=== PATIENT | male | born 1960 | race Caucasian/White ===

== ENCOUNTER 2019-12-25 08:15 | Outpatient (CLI) | payer MEDICARE, SELFPAY ==
--- NOTE | 2019-12-25 | US_ITS ---
WS: [id number] RIGHT UPPER QUADRANT ULTRASOUND HISTORY: ELEVATED LIVER FUNCTIONS COMPARISON: None available. Liver: 15.9 cm in length. Very limited evaluation of the liver. Only a small portion of the liver is visualized. There does appear to be significant hepatic steatosis. Liver appears enlarged although th e measurements are normal. Gallbladder: Status post prior cholecystectomy. CBD: 0.3 cm Pancreas: Poorly visualized. Right kidney: 10.1 cm in length. Normal echogenicity with no mass or hydronephrosis. Aorta and IVC: Unremarkable. No ascites. US/US abdomen limited 85100 IMPRESSION: 1. Limited evaluation of the RIGHT upper quadrant. 2. Poorly visualized liver. At least moderate hepatic steatosis. The entire li donell has not been imaged. 3. Prior cholecystectomy.
== END 2019-12-25 08:16 | disposition home or self-care (01) ==
LOC: RADOUTREAD 11:06
PROVIDERS: Visit Provider Physician Assistant
DX: Z01.89 Encounter for other specified special examinations (principal)

== ENCOUNTER 2020-02-02 08:36 | Outpatient (CLI) | payer MEDICARE, SELFPAY ==
--- NOTE | 2020-02-02 10:15 | MM_ITS ---
WS: [id number] BILATERAL DIGITAL DIAGNOSTIC MAMMOGRAM MAMMOGRAPHY WITH CAD CLINICAL INFORMATION: RT BREAST LUMP HISTORY: Bilateral breast lumps COMPARISON: None. TECHNIQUE: Bilateral CC, MLO, and ML views. FINDINGS: Scattered fibroglandular densities bilaterally. Palpable marker overlying the right areola. No mammographic abnormalities. Additional palpable marker left area left. No definite mammographic abnormalities in this area. Ultrasound is pending. ULTRASOUND BREAST RIGHT TECHNIQUE: Ultrasound right breast focused area of concern. CLINICAL INFORMATION: Right BREAST LUMP COMPARISON: None. FINDINGS: Ultrasound right breast at the 3:00, 6:00, 9:00, and 12:00 periareolar positions. No evidence of cyst ic or solid mass. Normal subareolar breast tissue. Comparison left breast is unremarkable. No lesions to target for biopsy. MM/[place] [id number] IMPRESSION: BI-RADS: 2-Benign FOLLOW UP: See Report Additional management of the palpable abnormality should be based on clinical g rounds.
== END 2020-02-02 08:37 | disposition home or self-care (01) ==
LOC: RADSHAW 08:37
PROVIDERS: PCP Physician Assistant; Visit Provider Physician Assistant
DX: N63.10 Unspecified lump in the right breast, unspecified quadrant (principal); N63.20 Unspecified lump in the left breast, unspecified quadrant
CPT/HCPCS: 76642; 77066

== ENCOUNTER 2020-12-23 10:26 | Emergency (ER) | payer MEDICARE, SELFPAY ==
[2020-12-23 10:40] VITALS: BP 158/87; PULSE 127; RESP 16; TEMP 36.5; O2SAT 98; BMI 31.5
--- NOTE | 2020-12-23 10:53 | W.ED.CHESTPA ---
HPI - Chest Pain General: Chief Complaint: Chest Pain Stated Complaint: palpitations, CP Time Seen by Provider: 12/23/20 10:40 History of Present Illness: HPI narrative: 80-year-old male comes in complaining of rapid heart rate intermittently. He has had this in the past. He is not had any shortness of breath associated with this. He has chronic neck pain for which he sees the methadone clinic for him. Some of the pain does radiate up into the left side of his neck and shoulder. He is not had a cough no fever sweats or chills. He has no known history of coronary artery disease. MD complaint: chest pain Onset (ago): hour(s) Timing of current episode: episodic Prior episodes: Yes Onset: during rest and during exertion Pain location: left chest Pain radiation: neck and left shoulder Severity: mild Quality: aching Relieving factors: nothing Exacerbating factors: nothing Associated symptoms: Deny abdominal pain, diaphoresis, dyspnea, fever(s), leg edema, nausea, palpitations, sense of impending doom, syncope or vomiting Treatment prior to arrival: none Review of Systems Const: Denies: fever(s) or diaphoresis ENMT: Denies: throat pain, ear or mastoid pain, nasal discharge or nasal congestion Card: Denies: palpitations or syncope Resp: Denies: dyspnea GI: Denies: abdominal pain, nausea or vomiting : Denies: flank pain, dysuria, urinary frequency or urinary urgency Skin/Breast: Denies: rash or pruritus PFSH ED PFSH: Social History Smoking and tobacco status: former smoker Alcohol intake: former Substance/Drug Use: never Physical Exam Const: COMMON NORMALS: no acute distress GENERAL APPEARANCE: cooperative and comfortable ORIENTATION/CONSCIOUSNESS: Yes awake, Yes oriented to person, Yes oriented to place and Yes oriented to time HENMT: COMMON NORMALS: normocephalic, atraumatic and hearing grossly normal bilaterally HEAD & SCALP: normocephalic and atraumatic Neck/C-Spine: COMMON NORMALS: no JVD Resp: COMMON NORMALS: normal respiratory effort, No retractions, No use of accessory muscles and clear to auscultation bilaterally AUSCULTATION: clear to auscultation bilaterally Cardio: COMMON NORMALS: no JVD, regular rate, regular rhythm and No murmurs present (Cardio) RATE: regular rate RHYTHM: regular rhythm GI: COMMON NORMALS: Soft to palpation and No hepatosplenomegaly present AUSCULTATION: Yes normoactive bowel sounds PALPATION: Yes Soft to palpation, No Tenderness to palpation present (GI), No Guarding due to palpation present (GI) and Yes No hepatosplenomegaly present Extremity: COMMON NORMALS: normal to inspection, capillary refill normal, no clubbing, cyanosis or edema, no calf tenderness and no pedal edema Neuro: SENSORIUM/ORIENTATION: Yes oriented to person, Yes oriented to place and Yes oriented to time Skin: COMMON NORMALS: no rashes or lesions noted GENERAL SKIN EXAM: no rashes or lesions noted Course Vital Signs: Vital signs: Vital Signs Temperature 97.7 F 12/23/20 10:40 Pulse Rate 70 12/23/20 14:21 Respiratory Rate 16 12/23/20 14:21 Blood Pressure 114/78 12/23/20 14:21 Pulse Oximetry 96 12/23/20 14:21 MDM - Chest Pain MDM Narrative: Medical decision making narrative: We will decrease his lisinopril and add Toprol. Follow-up with primary care doctor next week return if has further problems. At this point he is feeling much better reviewed the findings with him. Lab Data: Labs: Lab Results 12/23/20 12/23/20 12/23/20 Range/Units 11:00 11:00 11:00 WBC 5.5 (4.0-10.0) 10^3/ uL RBC 4.87 (4.1-5.3) 10^6/u L Hgb 13.1 (11.7-16.6) g/dL Hct 39.9 L (42.0-52.0) % MCV 81.9 (80-94) fL MCH 26.9 L (28.0-34.0) pg MCHC 32.8 (30.0-36.0) g/dL RDW 14.0 (12.1-15.1) % Plt Count 258 (130-400) 10^3/c mm MPV 10.1 (7.4-10.4) fL Neut % (Auto) 66.4 % Lymph % (Auto) 21.8 % [place] % (Auto) 9.8 % Eos % (Auto) 1.1 % Baso % (Auto) 0.7 % Neut # (Auto) 3.65 (1.8-7.7) 10^3/u L Lymph # (Auto) 1.2 (0.8-4.8) 10^3/u L [place] # (Auto) 0.5 (0.2-0.9) 10^3/u L Eos # (Auto) 0.1 (0.0-0.8) 10^3/u L Baso # (Auto) 0.0 (0.0-0.1) 10^3/u L Nucleated RBC % (a uto) 0 % Nucleated RBCs # 0.0 /100WBC Sodium Cancelled Potassium Cancelled Chloride Cancelled Carbon Dioxide Cancelled Anion Gap Cancelled BUN Cancelled Creatinine Cancelled GFR Calculation Cancelled Glucose Cancelled Calculated Osmolal ity Cancelled Calcium Cancelled Total Bilirubin Cancelled AST Cancelled ALT Cancelled Alkaline Phosphata se Cancelled Troponin T Baselin e Cancelled Troponin T 120 Min [place] (0-15) ng/L Delta Troponin T (0-10) ABS# Total Protein Cancelled Albumin Cancelled Globulin Cancelled TSH Cancelled Free T4 Cancelled 12/23/20 12/23/20 12/23/20 Range/Units 11:32 11:32 13:22 WBC (4.0-10.0) 10^3/ uL RBC (4.1-5.3) 10^6/u L Hgb (11.7-16.6) g/dL Hct (42.0-52.0) % MCV (80-94) fL MCH (28.0-34.0) pg MCHC (30.0-36.0) g/dL RDW (12.1-15.1) % Plt Count (130-400) 10^3/c mm MPV (7.4-10.4) fL Neut % (Auto) % Lymph % (Auto) % [place] % (Auto) % Eos % (Auto) % Baso % (Auto) % Neut # (Auto) (1.8-7.7) 10^3/u L Lymph # (Auto) (0.8-4.8) 10^3/u L [place] # (Auto) (0.2-0.9) 10^3/u L Eos # (Auto) (0.0-0.8) 10^3/u L Baso # (Auto) (0.0-0.1) 10^3/u L Nucleated RBC % (a uto) % Nucleated RBCs # /100WBC Sodium 136 Potassium 4.2 Chloride 100 Carbon Dioxide 30 H Anion Gap 10.2 BUN 10 Creatinine 0.7 GFR Calculation 114.6 Glucose 117 H Calculated Osmolal ity 282 L Calcium 8.7 Total Bilirubin 0.4 AST 226 H ALT 178 H Alkaline Phosphata se 231 H Troponin T Baselin e 11 Troponin T 120 Min [place] 11.37 (0-15) ng/L Delta Troponin T 0.37 (0-10) ABS# Total Protein 6.9 Albumin 3.9 Globulin 3.0 TSH 1.13 Free T4 1.37 Discharge Plan Discharge Patient Disposition: Home Clinical Impression: Benign essential HTN, Heart palpitations Condition: Stable Prescriptions: New Toprol XL 25 mg tablet extended release 24 hr 25 mg PO DAILY Qty: 30 RF: 0 Changed lisinopril 10 mg Tablet 10 mg PO DAILY Qty: 0 RF: 0 No Action aspirin 325 mg Tablet 325 mg PO PRN RF: 0 ibuprofen 800 mg tablet 800 mg PO BID PRN (Reason: Pain) RF: 0 methadone 10 mg Tablet 60 mg PO QAM RF: 0 Combivent Respimat 20-100 mcg/actuation mist 2 puff INHALATION QID PRN (Reason: Shortness Of Breath) RF: 0 Discharge Orders: Discharge ED (Routine); Ordered 12/23/20 Ordered By: Ezequiel Trinidad Referrals: Nallely Good PA [Primary Care Provider] - Discharge Diet: Usual diet Discharge Activity: Resume usual activity Patient Instructions: Opioid Safety Activity Restrictions/Additional Instructions: This management will call to get you set up for 24-hour Holter monitor. Follow-up with your PCP for reevaluation of blood pressure within the next week. Coding Level of Care Code ED Director Of Materials for [place] Fwd Exam Comprehensive
[2020-12-23 11:08] LABS: Basophils % 0.7 %; Eosinophils # 0.1 10^3/uL (0.0-0.8); Eosinophils % 1.1 %; Hematocrit 39.9 % (42.0-52.0); Hemoglobin 13.1 g/dL (11.7-16.6); Lymphocytes # 1.2 10^3/uL (0.8-4.8); Lymphocytes % 21.8 %; Mean Corpuscular HGB Conc 32.8 g/dL (30.0-36.0); Mean Corpuscular Hemoglobin 26.9 pg (28.0-34.0); Mean Corpuscular Volume 81.9 fL (80-94); Mean Platelet Volume 10.1 fL (7.4-10.4); Monocytes # 0.5 10^3/uL (0.2-0.9); Monocytes % 9.8 %; Neutrophils # 3.65 10^3/uL (1.8-7.7); Neutrophils % 66.4 %; Nucleated Red Blood Cells % 0 %; Platelet Count 258 10^3/cmm (130-400); Red Blood Count 4.87 10^6/uL (4.1-5.3); White Blood Count 5.5 10^3/uL (4.0-10.0)
--- NOTE | 2020-12-23 11:11 | PC.PHAR ---
pt states he started taking his lisinopril from 2016 again 3 days ago-pt states he has been taking 20mg daily-[facility] am-pt states he takes aspirin prn-
[2020-12-23 11:20] VITALS: BP 140/85; PULSE 98; RESP 14; O2SAT 98
[2020-12-23 12:03] LABS: Troponin(5th) Baseline 11 ng/L (0-15)
[2020-12-23 12:11] LABS: Alanine Aminotransferase 178 U/L (0-41); Albumin Level 3.9 g/dL (3.5-5.2); Alkaline Phosphatase 231 IU/L (40-130); Anion Gap 10.2 (5-19); Aspartate Amino Transferase 226 U/L (0-40); Blood Urea Nitrogen 10 mg/dL (8-23); Calcium 8.7 mg/dL (8.5-10.5); Carbon Dioxide 30 mmol/L (22-29); Chloride 100 mmol/L (98-107); Creatinine Clr Calc Pharmacy 131.2215; Glomerular Filtration Rate 114.6 mL/min (90-130); Glucose 117 mg/dL (65-115); Osmolality Calculated 282 mOsm/kg (285-295); Potassium 4.2 mmol/L (3.5-5.1); Sodium 136 mmol/L (136-145); Thyroid Stimulating Hormone 1.13 uIU/mL (0.27-4.20); Total Bilirubin 0.4 mg/dL (0.15-1.2); Total Protein 6.9 g/dL (6.6-8.7)
--- NOTE | 2020-12-23 12:48 | ECG_ITS ---
[facility] Test Date: 2020-12-23 Pat Name: Pedro Whitmore Department: Room: Gender: Male Oak Tanner: : 1960 Requested By: Ezequiel Brown Order Number: [id number] Eusebio MD: Shar Mariee M.D. Measurements Intervals [place] Rate: 75 P: 61 ND: 191 QRS: -14 QRSD: 139 T: 26 QT: 402 QTc: 451 Interpretive Statements SINUS RHYTHM RIGHT BUNDLE BRANCH BLOCK [120+ ms QRS DURATION, UPRIGHT V1, 40+ ms S IN I/aVL/V4/V5/V6] Compared to ECG 12/23/2020 10:50:38 No significant changes Electronically Signed On 12-23-2020 16:14:45 SECURITY OFFICER SUPERVISOR by Shar Mariee M.D. [email or web address].[employer]/store/[id number]
[2020-12-23 13:00] LABS: Free T4 Free Thyroxine 1.37 ng/dL (0.82-1.77)
--- NOTE | 2020-12-23 13:13 | PC.NURSE ---
EKG done at 1310 and shown to ER doctor
[2020-12-23 13:24] VITALS: BP 121/83; PULSE 74; RESP 17; O2SAT 95
[2020-12-23 13:49] LABS: Troponin 5 2HR 11.37 ng/L (0-15); Troponin 5 2HR Delta 0.37 ABS# (0-10)
[2020-12-23 14:21] VITALS: BP 114/78; PULSE 70; RESP 16; O2SAT 96
--- NOTE | 2020-12-23 16:48 | ECG_ITS ---
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 Measurements Intervals [place] Rate: 99 P: 50 MD: 137 QRS: -26 QRSD: 147 T: 31 QT: 376 QTc: 483 Interpretive Statements SINUS RHYTHM BORDERLINE LEFT AXIS DEVIATION [QRS AXIS < -20] RIGHT BUNDLE BRANCH BLOCK [120+ ms QRS DURATION, UPRIGHT V1, 40+ ms S IN I/aVL/V4/V5/V6] No previous ECG available for comparison Electronically Signed On 12-23-2020 16:14:09 SLITTING AND SHIPPING SUPERVISOR by Shar Mariee M.D. [email or web address].[employer]/store/Om/[id number]
== END 2020-12-23 14:23 | disposition home or self-care (01) ==
PROVIDERS: Emergency Provider Family Medicine; PCP Physician Assistant
DX: R00.2 Palpitations (principal); I10 Essential (primary) hypertension; Z79.82 Long term (current) use of aspirin; Z87.891 Personal history of nicotine dependence
CPT/HCPCS: 36415; 80053; 84439; 84443; 84484; 85025; 93005; 99283

== ENCOUNTER 2021-04-14 11:44 | Emergency (ER) | payer MEDICARE, SELFPAY ==
[2021-04-14 12:01] VITALS: BP 106/70; PULSE 88; RESP 18; TEMP 37.2; O2SAT 96; BMI 30.1
--- NOTE | 2021-04-14 12:33 | W.ED.LOWEXIN ---
HPI - Extremity Injury (Lower) General: Chief Complaint: Extremity Injury, Lower Stated Complaint: LLE Injury Time Seen by Provider: 04/14/21 12:33 Source: patient Mode of arrival: ambulatory Limitations: no limitations History of Present Illness: HPI Narrative: Patient is a 60-year-old male who presents to ED today with a complaint of a left foot injury. Patient tells me he rolled the foot while walking yesterday. Patient tells me he has not been able to bear weight on the extremity since the event. He has no other complaints at this time. complaint: foot injury Onset (ago): day(s) (yesterday) Type of Injury: inversion Place: home Severity: severe Relieving factors: immobilization Exacerbating factors: weight bearing, movement and palpation Context: other (twisting) Associated symptoms: Reports inability to bear weight Other symptoms: none Review of Systems Musc: Reports: extremity pain (L foot) and extremity swelling (L foot); Denies: joint pain or joint swelling Neuro: Reports: difficulty walking (secondary to pain); Denies: numbness in extremities or sensory changes [facility], [facility] ED PFSH: Social History Smoking and tobacco status: former smoker Alcohol intake: former Physical Exam Const: COMMON NORMALS: no acute distress, average body habitus, patient oriented x3, no limitations, alert and well nourished GENERAL APPEARANCE: cooperative Extremity: GENERAL: Yes normal exam except as noted LEFT LOWER EXTREMITY: Yes foot & digits OTHER: TTP lateral left foot; mild swelling and bruising noted; NV intact; no tenderness to ankle mortise Neuro: COMMON NORMALS: patient oriented x3, moves all extremities, no focal motor deficits and no sensory deficits noted SENSORIUM/ORIENTATION: Yes alert GAIT: Yes Unable to assess gait Skin: NARRATIVE SKIN EXAM: mild ecchymosis to L dorsal foot; otherwise normal skin exam Course Vital Signs: Vital signs: Vital Signs Temperature 98.9 F 04/14/21 12:01 Pulse Rate 88 04/14/21 12:01 Respiratory Rate 18 04/14/21 12:01 Blood Pressure 106/70 04/14/21 12:01 Pulse Oximetry 96 04/14/21 12:01 MDM - Extremity Injury (Lower) MDM Narrative: Medical decision making narrative: Will place in hard soled surgical shoe, crutches, and have him followup with orthopedics/podiatry. Imaging Data^: XR L foot: Radiologist's impression: [address] [address] XRay Report Signed Patient: Pedro Whitmore Unit #: [id number] : 1960 Age/Sex: 60 / M ADM Date: 04/14/21 Loc: ER Room/Bed: Attending Dr: Ordering Provider/Ordering MD: Kary Elizabeth Date of Service: 04/14/21 Procedure(s): XR foot LT min 3V* 64190 Accession Number(s): [id number] Report Number: [id number] WS: [id number] Left foot, 3 views, 04/14/2021 Clinical Data: injury Comparison: None. Findings: There is a fracture of the base of the left fifth metatarsal. No other fractures are seen. The joint spaces are normal. The soft tissues are unremarkable. XR/XR foot LT min 3V* [id number] Impression: Fracture of the base of the left fifth metatarsal. Dictated By: Mirtha Isaac MD Signed By: Mirtha Isaac MD Signed Date/Time: 04/14/211254 DD/ 1254 Discharge Plan Discharge Patient Disposition: Home Clinical Impression: Closed nondisplaced fracture of fifth left metatarsal bone Qualifiers: Encounter type: initial encounter Qualified Code(s): S92.355A - Nondisplaced fracture of fifth metatarsal bone, left foot, initial encounter for closed fracture Condition: Stable Prescriptions: No Action aspirin 325 mg Tablet 325 mg PO PRN RF: 0 ibuprofen 800 mg tablet 800 mg PO BID PRN (Reason: Pain) RF: 0 methadone 10 mg Tablet 60 mg PO QAM RF: 0 Combivent Respimat 20-100 mcg/actuation mist 2 puff INHALATION QID PRN (Reason: Shortness Of Breath) RF: 0 Toprol XL 25 mg tablet extended release 24 hr 25 mg PO DAILY Qty: 30 RF: 0 lisinopril 10 mg Tablet 10 mg PO DAILY Qty: 0 RF: 0 Discharge Orders: Discharge ED (Routine); Ordered 04/14/21 Ordered By: Kary Elizabeth Referrals: Nallely Good PA [Primary Care Provider] - Patient Instructions: Fractures - Metatarsal Activity Restrictions/Additional Instructions: As we discussed case management should contact you shortly to set you up with your orthopedic follow-up appointment. You need to wear your surgical shoe or hard soled shoe at all times. Continue to use crutches until told otherwise by orthopedics. Coding Level of Care Code ED Room Service Attendant for Chg Fwd Exam Expanded Problem Focused
--- NOTE | 2021-04-14 12:37 | XR_ITS ---
WS: [id number] Left foot, 3 views, 04/14/2021 Clinical Data: injury Comparison: None. Findings: There is a fracture of the base of the left fifth metatarsal. No other fractures are seen. The joint spaces are normal. The soft tissues are unremarkable. XR/XR foot LT min 3V* [id number] Impression: Fracture of the base of the left fifth metatarsal.
--- NOTE | 2021-04-14 14:51 | DCPLANNER ---
client care manager had message to schedule a follow up appointment for patient with ortho for L %th metatarsal fracture. client care manager called the ortho clinic, spoke with Tali, gave clinic patients information. client care manager was told that patients information will be printed and reviewed. Clinic will call patient with appointment information.
--- NOTE | 2021-04-20 11:01 | DCPLANNER ---
bankruptcy manager spoke with Ani at [facility] concerning a follow up appointment. bankruptcy manager was told that clinic, has left a message with patients daughter to call clinic to schedule a follow up appointment for patient.
== END 2021-04-14 13:38 | disposition home or self-care (01) ==
PROVIDERS: Emergency Provider Physician Assistant; PCP Physician Assistant
DX: S92.335A Nondisplaced fracture of third metatarsal bone, left foot, initial encounter for closed fracture (principal); Z87.891 Personal history of nicotine dependence; X50.1XXA Overexertion from prolonged static or awkward postures, initial encounter; Z79.84 Long term (current) use of oral hypoglycemic drugs
CPT/HCPCS: 73630; 99283; E0114

== ENCOUNTER 2022-08-02 19:18 | Emergency (ER) | payer MEDICARE, SELFPAY ==
[2022-08-02] VITALS (8 sets, daily range): BP systolic 115–164; BP diastolic 67–99; PULSE 80–121; RESP 14–20; TEMP 36.6; O2SAT 95–100
--- NOTE | 2022-08-02 19:23 | ECG_ITS ---
[facility] Test Date: 2022-08-02 Pat Name: Pedro Whitmore Department: Room: Gender: Male Product Support Rep: : 1960 Requested By: Tonia Reyes Order Number: [id number] Eusebio MD: Shar Mariee M.D. Measurements Intervals [place] Rate: 113 P: 67 HI: 169 QRS: -45 QRSD: 146 T: 35 QT: 308 QTc: 423 Interpretive Statements SINUS TACHYCARDIA RIGHT BUNDLE BRANCH BLOCK [120+ ms QRS DURATION, UPRIGHT V1, 40+ ms S IN I/aVL/V4/V5/V6] LEFT ANTERIOR FASCICULAR BLOCK [QRS AXIS <= -45, QR IN I, RS IN II] Compared to ECG 12/23/2020 13:08:39 Left anterior fascicular block now present Sinus rhythm no longer present Electronically Signed On 08-02-2022 20:39:10 CDT by Shar Mariee M.D. [email or web address].[email or web address].[employer]/store/NU/[id number] f
--- NOTE | 2022-08-02 19:25 | XRR_ITS ---
PROCEDURE INFORMATION: Exam: XR Chest Exam date and time: 08/02/2022 7:32 PM Age: 62 years old Clinical indication: Chest pressure and chest wall pain; Additional info: Dyspnea TECHNIQUE: Imaging protocol: Radiologic exam of the chest. Views: 1 view. COMPARISON: CR XR chest 2V* [id number] 10/10/2021 2:43 PM FINDINGS: Lungs: Calcified pulmonary nodule/nodules, consistent with prior granulomatous disease. Pleural spaces: Unremarkable. No pleural effusion. No pneumothorax. Heart/Mediastinum: Unremarkable. No cardiomegaly. Bones/joints: Unremarkable. XR/XR chest 1V portable [id number] IMPRESSION: No acute disease.
--- NOTE | 2022-08-02 19:30 | CTR_ITS ---
PROCEDURE INFORMATION: Exam: CTA Chest With Contrast Exam date and time: 08/02/2022 10:17 PM Age: 62 years old Clinical indication: Pain and abnormal findings; Abnormal diagnostic tests; Elevated d-dimer; Shortness of breath; Chest pressure; Patient HX: Chest pain with SOB and elevated d dimer. ; Additional info: Chestp ain TECHNIQUE: Imaging protocol: Computed tomographic angiography of the chest with contrast. 3D rendering (Not supervised by radiologist): MIP and/or 3D reconstructed images were created by the technologist. Radiation optimization: All CT scans at this facility use at least one of these dose optimization techniques: automated exposure control; mA and/or kV adjustment per patient size (includes targeted exams where dose is matched to clinical indication); or iterative reconstruction. Contrast material: OMNI 350; Contrast volume: 95 ml; Contrast route: INTRAVENOUS (IV); COMPARISON: CR (CHEST, ) 08/02/2022 7:32 PM RADIATION DOSE METRICS: Total DLP (mGy-cm): 379.84 FINDINGS: Pulmonary arteries: Suboptimal bolus timing. Within this limitation: No convincing evidence of acute pulmonary embolism. No pulmonary emboli are seen. Aorta: There are atherosclerotic calcifications of the thoracic aorta. No aortic aneurysm. No aortic dissection. There are atherosclerotic calcifications of the aortic arch and origin of the arch vessels. Lungs: Mild dependent opacities, likely atelectasis. Suspected small nodule along the right major fissure may represent a small lymph node or a tiny nodule. No consolidation. No masses. Pleural spaces: Unremarkable. No pneumothorax. No pleural effusion. Heart: There are atherosclerotic calcifications of the coronary arteries. No cardiomegaly. No pericardial effusion. Lymph nodes: No enlarged lymph nodes. Pancreas: Mild atrophy of the pancreas. Calcific densities in the spleen, likely granulomatous. Bones/joints: Mild degenerative changes of the spine.. No acute fracture. There are degenerative changes of the thoracic spine. Soft tissues: Status post cholecystectomy. CT/CT angio chest PE protcl [id number] IMPRESSION: 1. No evidence of acute pulmonary embolism. 2. Coronary atherosclerosis.
--- NOTE | 2022-08-02 19:32 | ED_ITS ---
Documented by User: Tonia Reyes MD 08/07/22 22:18 HPI - General Adult General: Chief complaint: Chest Pain Stated complaint: Chest Pains\SOB Time Seen by Provider: 08/02/22 19:25 History of Present Illness: Patient is a 62-year-old male with a history of hypertension mild asthma who presents emergency room with concerns of 1 week of chest pain and palpitations. For the last week, patient has noticed that his heart rate would jump between low 90s to the 130s. Patient has a chest pain is worse with exertion and moves to the left shoulder and jaw. Patient earlier today reports diarrhea, nausea/vomiting and cough earlier today. Onset:1 week ago Duration:1 week Location:home Severity:moderate Associated symptoms: Reports chest pain, nausea and palpitations; Deny dyspnea, rash or vomiting Review of Systems Const: Denies: fever(s) or chills Eyes: Denies: change in vision ENMT: Denies: mouth pain Card: Reports: chest pain and palpitations Resp: Denies: dyspnea or non-productive cough GI: Reports: nausea and diarrhea; Denies: abdominal pain or vomiting : Denies: dysuria Musc: Denies: extremity pain Skin/Breast: Denies: rash or new lesions Neuro: Denies: weakness in extremities Psych: Reports: other (Normal mood) Omar/Lymph: Denies: easy bruising [facility] ED PFSH: Medical History Hypertension Social History Smoking and tobacco status: former smoker Alcohol intake: former Physical Exam Const: COMMON NORMALS: alert HENMT: COMMON NORMALS: atraumatic HEAD & SCALP: atraumatic MOUTH: moist mucous membranes not abnormal Eye: COMMON NORMALS: EOMs intact bilaterally and conjunctivae normal CONJUNCTIVA: Yes conjunctivae normal Neck/C-Spine: COMMON NORMALS: full ROM and supple Resp: COMMON NORMALS: normal respiratory effort and clear to auscultation bilaterally AUSCULTATION: clear to auscultation bilaterally Cardio: COMMON NORMALS: regular rate RATE: regular rate OTHER: 2+ radial pulses b/l GI: COMMON NORMALS: Soft to palpation and non-tender PALPATION: Yes Soft to palpation OTHER: No focal TTP. NO guarding rebound, guarding, rigidity. No CVA tenderness to percussion. Neg Silva/Neg McBurney's point tenderness, no suprabupic tenderness to palpation. Extremity: COMMON NORMALS: full ROM OTHER: No Homans' sign or lower extremity swelling Neuro: SENSORIUM/ORIENTATION: Yes alert MOTOR EXAM: No Abnormal motor strength present and Other motor observations present (no focal motor deficits) Psych: COMMON NORMALS: speech normal SPEECH: Yes normal speech MOOD & AFFECT: Yes euthymic mood Course Vital Signs: Vital signs: Vital Signs Temperature 97.8 F 08/02/22 19:24 Pulse Rate 90 08/03/22 00:21 Respiratory Rate 16 08/03/22 00:21 Blood Pressure 125/82 08/03/22 00:21 Pulse Oximetry 100 08/03/22 00:21 Oxygen Delivery Me thod 08/03/22 00:21 MDM - General Adult Medical Decision Making Patient is a 62-year-old male with a history of hypertension mild asthma who presents emergency room with concerns of 1 week of chest pain and palpitations. Troponin is wnl. XR chest clear. EKG is nonischemic. Appears to be elevated. Pending CTA. Patient presents here with chest pain I took patient over from Dr. Reyes following CT angio of his chest his troponins have been negative CT angio is normal he is stable for discharge he is to follow-up with PCP and return if worsening. Lab Data : 08/02/22 19:36 08/02/22 20:35 Radiology Impressions Chest X-Ray 08/02/22 19:25 IMPRESSION: No acute disease. Chest CTA 08/02/22 19:30 IMPRESSION: 1. No evidence of acute pulmonary embolism. 2. Coronary atherosclerosis. Laboratory Results WBC 10.9 10^3/uL (4.0-10.0) H 08/02/22 19:36 RBC 4.73 10^6/uL (4.1-5.3) 08/02/22 19:36 Hgb 13.1 g/dL (11.7-16.6) 08/02/22 19:36 Hct 39.2 % (42.0-52.0) L 08/02/22 19:36 MCV 82.9 fl (80-94) 08/02/22 19:36 MCH 27.7 pg (28.0-34.0) L 08/02/22 19:36 MCHC 33.4 g/dL (30.0-36.0) 08/02/22 19:36 RDW 14.1 % (12.1-15.1) 08/02/22 19:36 Plt Count 280 10^3/cmm (130-400) 08/02/22 19:36 MPV 11.6 fL (7.4-10.4) H 08/02/22 19:36 Neut % (Auto) 45.1 % 08/02/22 19:36 Lymph % (Auto) 41.0 % 08/02/22 19:36 [place] % (Auto) 9.9 % 08/02/22 19:36 Eos % (Auto) 3.2 % 08/02/22 19:36 Baso % (Auto) 0.5 % 08/02/22 19:36 Neut # (Auto) 4.93 10^3/uL (1.8-7.7) 08/02/22 19:36 Lymph # (Auto) 4.5 10^3/uL (0.8-4.8) 08/02/22 19:36 [place] # (Auto) 1.1 10^3/uL (0.2-0.9) H 08/02/22 19:36 Eos # (Auto) 0.4 10^3/uL (0.0-0.8) 08/02/22 19:36 Baso # (Auto) 0.1 10^3/uL (0.0-0.1) 08/02/22 19:36 Nucleated RBC % (auto) 0 % 08/02/22 19:36 Nucleated RBCs # 0.0 /100WBC 08/02/22 19:36 Sodium 138 mmol/L (136-145) 08/02/22 20:35 Sodium 139 mmol/L (136-145) 08/02/22 20:35 Potassium 3.6 mmol/L (3.5-5.1) 08/02/22 20:35 Potassium 3.6 mmol/L (3.5-5.1) 08/02/22 20:35 Chloride 103 mmol/L (98-107) 08/02/22 20:35 Chloride 104 mmol/L (98-107) 08/02/22 20:35 Carbon Dioxide 27 mmol/L (22-29) 08/02/22 20:35 Carbon Dioxide 27 mmol/L (22-29) 08/02/22 20:35 Anion Gap 11.6 (5-19) 08/02/22 20:35 Anion Gap 11.6 (5-19) 08/02/22 20:35 BUN 11 mg/dL (8-23) 08/02/22 20:35 BUN 12 mg/dL (8-23) 08/02/22 20:35 Creatinine 0.8 mg/dL (0.7-1.2) 08/02/22 20:35 Creatinine 0.8 mg/dL (0.7-1.2) 08/02/22 20:35 GFR Calculation 97.6 mL/min (90-130) 08/02/22 20:35 GFR Calculation 97.6 mL/min (90-130) 08/02/22 20:35 Glucose 101 mg/dL (65-115) 08/02/22 20:35 Glucose 101 mg/dL (65-115) 08/02/22 20:35 Calculated Osmolality 286 mOsm/kg (285-295) 08/02/22 20:35 Calculated Osmolality 288 mOsm/kg (285-295) 08/02/22 20:35 Calcium 8.7 mg/dL (8.5-10.5) 08/02/22 20:35 Calcium 8.7 mg/dL (8.5-10.5) 08/02/22 20:35 Magnesium 1.9 mg/dL (1.7-2.3) 08/02/22 20:35 Total Bilirubin 0.2 mg/dL (0.15-1.2) 08/02/22 20:35 Total Bilirubin 0.2 mg/dL (0.15-1.2) 08/02/22 20:35 AST 23 U/L (0-40) 08/02/22 20:35 AST 23 U/L (0-40) 08/02/22 20:35 ALT 30 U/L (0-41) 08/02/22 20:35 ALT 30 U/L (0-41) 08/02/22 20:35 Alkaline Phosphatase 121 U/L (40-130) 08/02/22 20:35 Alkaline Phosphatase 122 U/L (40-130) 08/02/22 20:35 Troponin T Baseline 7 ng/L (0-15) 08/02/22 19:36 Troponin T 120 Minute 7.67 ng/L (0-15) 08/02/22 21:15 Delta Troponin T 0.67 ABS# (0-10) 08/02/22 21:15 NT-Pro-B Natriuret Pep 207 pg/mL (0-125) H 08/02/22 20:35 Total Protein 5.6 g/dL (6.6-8.7) L 08/02/22 20:35 Total Protein 5.7 g/dL (6.6-8.7) L 08/02/22 20:35 Albumin 3.1 g/dL (3.5-5.2) L 08/02/22 20:35 Albumin 3.2 g/dL (3.5-5.2) L 08/02/22 20:35 Globulin 2.5 g/dL (1.3-4.6) 08/02/22 20:35 Globulin 2.5 g/dL (1.3-4.6) 08/02/22 20:35 Lipase 26 U/L (13-60) 08/02/22 20:35 Lipase 26 U/L (13-60) 08/02/22 20:35 TSH 1.55 uIU/mL (0.27-4.20) 08/02/22 20:35 Free T4 1.31 ng/dL (0.82-1.77) 08/02/22 20:35 SARS-CoV-2 Ag (Rapid) Negative (Negative) 08/02/22 20:00 Discharge Plan Discharge Patient Disposition: Home Clinical Impression: Chest pain, Palpitations Condition: Stable Prescriptions: No Action aspirin 325 mg Tablet 325 mg PO PRN ibuprofen 800 mg tablet 800 mg PO BID PRN (Reason: Pain) methadone 10 mg Tablet 60 mg PO QAM Combivent Respimat 20-100 mcg/actuation mist 2 puff INHALATION QID PRN (Reason: Shortness Of Breath) Toprol XL 25 mg tablet extended release 24 hr 25 mg PO DAILY Qty: 30 0RF lisinopril 10 mg Tablet 10 mg PO DAILY Qty: 0 0RF Rx Instructions: see pharmacy comments Discharge Orders: Discharge ED (Routine); Ordered 08/03/22 Ordered By: Korby Cherri Referrals: Nallely Good PA [Primary Care Provider] - Discharge Diet: Advance as tolerated Discharge Activity: Resume usual activity Coding Level of Care Code ED 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 [employer] Fwd Exam Comprehensive Documented by User: Fabiola Harley MD 08/03/22 00:22 HPI - General Adult General: Chief complaint: Chest Pain Stated complaint: Chest Pains\SOB Time Seen by Provider: 08/02/22 19:25 PFSH ED PFSH: Medical History Hypertension Social History Smoking and tobacco status: former smoker Alcohol intake: former Course Vital Signs: Vital signs: Vital Signs Temperature 97.8 F 08/02/22 19:24 Pulse Rate 90 08/03/22 00:21 Respiratory Rate 16 08/03/22 00:21 Blood Pressure 125/82 08/03/22 00:21 Pulse Oximetry 100 08/03/22 00:21 Oxygen Delivery Me thod 08/03/22 00:21 [facility] - General Adult Medical Decision Making Patient presents here with chest pain I took patient over from Dr. Reyes following CT angio of his chest his troponins have been negative CT angio is normal he is stable for discharge he is to follow-up with PCP and return if worsening. Lab Data : 08/02/22 19:36 08/02/22 20:35 Radiology Impressions Chest X-Ray 08/02/22 19:25 IMPRESSION: No acute disease. Chest CTA 08/02/22 19:30 IMPRESSION: 1. No evidence of acute pulmonary embolism. 2. Coronary atherosclerosis. Laboratory Results WBC 10.9 10^3/uL (4.0-10.0) H 08/02/22 19:36 RBC 4.73 10^6/uL (4.1-5.3) 08/02/22 19:36 Hgb 13.1 g/dL (11.7-16.6) 08/02/22 19:36 Hct 39.2 % (42.0-52.0) L 08/02/22 19:36 MCV 82.9 fl (80-94) 08/02/22 19:36 MCH 27.7 pg (28.0-34.0) L 08/02/22 19:36 MCHC 33.4 g/dL (30.0-36.0) 08/02/22 19:36 RDW 14.1 % (12.1-15.1) 08/02/22 19:36 Plt Count 280 10^3/cmm (130-400) 08/02/22 19:36 MPV 11.6 fL (7.4-10.4) H 08/02/22 19:36 Neut % (Auto) 45.1 % 08/02/22 19:36 Lymph % (Auto) 41.0 % 08/02/22 19:36 [place] % (Auto) 9.9 % 08/02/22 19:36 Eos % (Auto) 3.2 % 08/02/22 19:36 Baso % (Auto) 0.5 % 08/02/22 19:36 Neut # (Auto) 4.93 10^3/uL (1.8-7.7) 08/02/22 19:36 Lymph # (Auto) 4.5 10^3/uL (0.8-4.8) 08/02/22 19:36 [place] # (Auto) 1.1 10^3/uL (0.2-0.9) H 08/02/22 19:36 Eos # (Auto) 0.4 10^3/uL (0.0-0.8) 08/02/22 19:36 Baso # (Auto) 0.1 10^3/uL (0.0-0.1) 08/02/22 19:36 Nucleated RBC % (auto) 0 % 08/02/22 19:36 Nucleated RBCs # 0.0 /100WBC 08/02/22 19:36 Sodium 138 mmol/L (136-145) 08/02/22 20:35 Sodium 139 mmol/L (136-145) 08/02/22 20:35 Potassium 3.6 mmol/L (3.5-5.1) 08/02/22 20:35 Potassium 3.6 mmol/L (3.5-5.1) 08/02/22 20:35 Chloride 103 mmol/L (98-107) 08/02/22 20:35 Chloride 104 mmol/L (98-107) 08/02/22 20:35 Carbon Dioxide 27 mmol/L (22-) 08/02/22 20:35 Carbon Dioxide 27 mmol/L (-) 08/02/22 20:35 Anion Gap 11.6 (5-19) 08/02/22 20:35 Anion Gap 11.6 (5-19) 08/02/22 20:35 BUN 11 mg/dL (8-23) 08/02/22 20:35 BUN 12 mg/dL (8-23) 08/02/22 20:35 Creatinine 0.8 mg/dL (0.7-1.2) 08/02/22 20:35 Creatinine 0.8 mg/dL (0.7-1.2) 08/02/22 20:35 GFR Calculation 97.6 mL/min (90-130) 08/02/22 20:35 GFR Calculation 97.6 mL/min (90-130) 08/02/22 20:35 Glucose 101 mg/dL (65-115) 08/02/22 20:35 Glucose 101 mg/dL (65-115) 08/02/22 20:35 Calculated Osmolality 286 mOsm/kg (285-295) 08/02/22 20:35 Calculated Osmolality 288 mOsm/kg (285-295) 08/02/22 20:35 Calcium 8.7 mg/dL (8.5-10.5) 08/02/22 20:35 Calcium 8.7 mg/dL (8.5-10.5) 08/02/22 20:35 Magnesium 1.9 mg/dL (1.7-2.3) 08/02/22 20:35 Total Bilirubin 0.2 mg/dL (0.15-1.2) 08/02/22 20:35 Total Bilirubin 0.2 mg/dL (0.15-1.2) 08/02/22 20:35 AST 23 U/L (0-40) 08/02/22 20:35 AST 23 U/L (0-40) 08/02/22 20:35 ALT 30 U/L (0-41) 08/02/22 20:35 ALT 30 U/L (0-41) 08/02/22 20:35 Alkaline Phosphatase 121 U/L (40-130) 08/02/22 20:35 Alkaline Phosphatase 122 U/L (40-130) 08/02/22 20:35 Troponin T Baseline 7 ng/L (0-15) 08/02/22 19:36 Troponin T 120 Minute 7.67 ng/L (0-15) 08/02/22 21:15 Delta Troponin T 0.67 ABS# (0-10) 08/02/22 21:15 NT-Pro-B Natriuret Pep 207 pg/mL (0-125) H 08/02/22 20:35 Total Protein 5.6 g/dL (6.6-8.7) L 08/02/22 20:35 Total Protein 5.7 g/dL (6.6-8.7) L 08/02/22 20:35 Albumin 3.1 g/dL (3.5-5.2) L 08/02/22 20:35 Albumin 3.2 g/dL (3.5-5.2) L 08/02/22 20:35 Globulin 2.5 g/dL (1.3-4.6) 08/02/22 20:35 Globulin 2.5 g/dL (1.3-4.6) 08/02/22 20:35 Lipase 26 U/L (13-60) 08/02/22 20:35 Lipase 26 U/L (13-60) 08/02/22 20:35 TSH 1.55 uIU/mL (0.27-4.20) 08/02/22 20:35 Free T4 1.31 ng/dL (0.82-1.77) 08/02/22 20:35 SARS-CoV-2 Ag (Rapid) Negative (Negative) 08/02/22 20:00 Discharge Plan Discharge Patient Disposition: Home Clinical Impression: Chest pain, Palpitations Condition: Stable Prescriptions: No Action aspirin 325 mg Tablet 325 mg PO PRN ibuprofen 800 mg tablet 800 mg PO BID PRN (Reason: Pain) methadone 10 mg Tablet 60 mg PO QAM Combivent Respimat 20-100 mcg/actuation mist 2 puff INHALATION QID PRN (Reason: Shortness Of Breath) Toprol XL 25 mg tablet extended release 24 hr 25 mg PO DAILY Qty: 30 0RF lisinopril 10 mg Tablet 10 mg PO DAILY Qty: 0 0RF Rx Instructions: see pharmacy comments Discharge Orders: Discharge ED (Routine); Ordered 08/03/22 Ordered By: Fabiola Harley Referrals: Nallely Good PA [Primary Care Provider] - Discharge Diet: Advance as tolerated Discharge Activity: Resume usual activity Coding Level of Care Code ED 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
[2022-08-02 19:44] LABS: Basophils # 0.1 10^3/uL (0.0-0.1); Basophils % 0.5 %; Eosinophils # 0.4 10^3/uL (0.0-0.8); Eosinophils % 3.2 %; Hematocrit 39.2 % (42.0-52.0); Hemoglobin 13.1 g/dL (11.7-16.6); Lymphocytes # 4.5 10^3/uL (0.8-4.8); Mean Corpuscular HGB Conc 33.4 g/dL (30.0-36.0); Mean Corpuscular Hemoglobin 27.7 pg (28.0-34.0); Mean Corpuscular Volume 82.9 fl (80-94); Mean Platelet Volume 11.6 fL (7.4-10.4); Monocytes # 1.1 10^3/uL (0.2-0.9); Monocytes % 9.9 %; Neutrophils # 4.93 10^3/uL (1.8-7.7); Neutrophils % 45.1 %; Nucleated Red Blood Cells % 0 %; Platelet Count 280 10^3/cmm (130-400); Red Blood Count 4.73 10^6/uL (4.1-5.3); Red Cell Distribution Width 14.1 % (12.1-15.1); White Blood Count 10.9 10^3/uL (4.0-10.0)
[2022-08-02] MEDS: morphine 4 mg/mL SDV 1 mL IVP (20:02)
[2022-08-02] MEDS: lactated ringers 1,000 ML 999 ML IV (20:04)
[2022-08-02 20:09] LABS: Troponin(5th) Baseline 7 ng/L (0-15)
[2022-08-02 21:05] LABS: SARS Covid-2 Antigen Negative (Negative)
[2022-08-02 21:50] LABS: Troponin 5 2HR 7.67 ng/L (0-15)
[2022-08-02 21:56] LABS: Alanine Aminotransferase 30 U/L (0-41); Albumin Level 3.1 g/dL (3.5-5.2); Alkaline Phosphatase 121 U/L (40-130); Anion Gap 11.6 (5-19); Aspartate Amino Transferase 23 U/L (0-40); Blood Urea Nitrogen 12 mg/dL (8-23); Calcium 8.7 mg/dL (8.5-10.5); Carbon Dioxide 27 mmol/L (22-29); Chloride 103 mmol/L (98-107); Globulin 2.5 g/dL (1.3-4.6); Glomerular Filtration Rate 97.6 mL/min (90-130); Glucose 101 mg/dL (65-115); Lipase 26 U/L (13-60); NT Pro B Type Natriuretic Pept 207 pg/mL (0-125); Osmolality Calculated 286 mOsm/kg (285-295); Potassium 3.6 mmol/L (3.5-5.1); Sodium 138 mmol/L (136-145); Total Bilirubin 0.2 mg/dL (0.15-1.2); Total Protein 5.6 g/dL (6.6-8.7)
[2022-08-02 21:58] LABS: Alanine Aminotransferase 30 U/L (0-41); Albumin Level 3.2 g/dL (3.5-5.2); Alkaline Phosphatase 122 U/L (40-130); Anion Gap 11.6 (5-19); Aspartate Amino Transferase 23 U/L (0-40); Blood Urea Nitrogen 11 mg/dL (8-23); Calcium 8.7 mg/dL (8.5-10.5); Carbon Dioxide 27 mmol/L (22-29); Chloride 104 mmol/L (98-107); Globulin 2.5 g/dL (1.3-4.6); Glomerular Filtration Rate 97.6 mL/min (90-130); Glucose 101 mg/dL (65-115); Lipase 26 U/L (13-60); Magnesium 1.9 mg/dL (1.7-2.3); Osmolality Calculated 288 mOsm/kg (285-295); Potassium 3.6 mmol/L (3.5-5.1); Sodium 139 mmol/L (136-145); Thyroid Stimulating Hormone 1.55 uIU/mL (0.27-4.20); Total Bilirubin 0.2 mg/dL (0.15-1.2); Total Protein 5.7 g/dL (6.6-8.7)
--- NOTE | 2022-08-02 22:00 | ECG_ITS ---
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 Measurements Intervals [place] Rate: 75 P: 60 MT: 172 QRS: -16 QRSD: 149 T: 29 QT: 406 QTc: 455 Interpretive Statements SINUS RHYTHM RIGHT BUNDLE BRANCH BLOCK [120+ ms QRS DURATION, UPRIGHT V1, 40+ ms S IN I/aVL/V4/V5/V6] Compared to ECG 08/02/2022 19:23:43 Sinus tachycardia no longer present Left anterior fascicular block no longer present Electronically Signed On 08-03-2022 19:10:11 CDT by Shar Mariee M.D. [id number]
[2022-08-02] MEDS: iohexol 350 mg/mL 100 mL Btl IV (22:24)
[2022-08-02 22:34] LABS: Troponin 5 2HR Delta 0.67 ABS# (0-10)
[2022-08-03 00:21] VITALS: BP 125/82; PULSE 90; RESP 16; O2SAT 100
[2022-08-03 00:29] LABS: Free T4 Free Thyroxine 1.31 ng/dL (0.82-1.77)
== END 2022-08-03 00:23 | disposition home or self-care (01) ==
PROVIDERS: Emergency Medicine; Emergency Provider Emergency Medicine; PCP Physician Assistant
DX: R07.9 Chest pain, unspecified (principal); R00.2 Palpitations; Z20.822 Contact with and (suspected) exposure to COVID-19; Z79.891 Long term (current) use of opiate analgesic; I10 Essential (primary) hypertension; Z87.891 Personal history of nicotine dependence
CPT/HCPCS: 71045; 71275; 80053; 83690; 83735; 83880; 84439; 84443; 84484; 85025; 87426; 93005; 96361; 96374; 99285; J2270; Q9967

== ENCOUNTER → 2022-08-22 11:32 | Outpatient (BNVA) | payer MEDICARE, SELFPAY | PROVIDERS: PCP Physician Assistant; Visit Provider Internal Medicine | DX: R00.2 Palpitations (principal) | CPT/HCPCS: 93225 ==

== ENCOUNTER → 2023-01-02 10:34 | Outpatient (BNVA) | payer MEDICARE, SELFPAY | PROVIDERS: PCP Physician Assistant; Referring Provider Family Medicine; Visit Provider Podiatrist Foot & Ankle Surgery | DX: M19.072 Primary osteoarthritis, left ankle and foot (principal); L60.0 Ingrowing nail | CPT/HCPCS: 73630; 99204 ==

== ENCOUNTER → 2023-01-22 10:43 | Outpatient (BNVA) | payer MEDICARE, SELFPAY | PROVIDERS: PCP Physician Assistant; Visit Provider Podiatrist Foot & Ankle Surgery | DX: L60.0 Ingrowing nail (principal) | CPT/HCPCS: 11750 ==

== ENCOUNTER → 2023-02-04 14:23 | Outpatient (BNVA) | payer MEDICARE, SELFPAY | PROVIDERS: PCP Family Medicine; Visit Provider Podiatrist Foot & Ankle Surgery | DX: L60.0 Ingrowing nail (principal) | CPT/HCPCS: 99213 ==

== ENCOUNTER → 2023-05-28 08:03 | Outpatient (BNVA) | payer MEDICARE, SELFPAY | PROVIDERS: PCP Family Medicine; Visit Provider Podiatrist Foot & Ankle Surgery | DX: L60.0 Ingrowing nail (principal); M79.671 Pain in right foot; M79.672 Pain in left foot | CPT/HCPCS: 99213 ==